=== PATIENT | female | born 1975 | race Hispanic/Latino ===

== ENCOUNTER 2018-06-24 14:31 | Emergency (ER) | payer OTHER ==
--- NOTE | 2018-06-24 15:00 | RAD REPORT ---
EXAM DESCRIPTION: RAD - Hand Right 3 View - 06/24/2018 2:54 pm CLINICAL HISTORY: Pain;Swelling COMPARISON: No comparisons FINDINGS: No acute fracture or dislocation of the right hand is seen.
--- NOTE | 2018-06-24 15:04 | ER ---
Nurse's Notes [facility] Name: Celi Nixon Age: 43 yrs Sex: Female : 1975 Arrival Date: 06/24/2018 Time: 14:32 Bed 12 Private MD: Diagnosis: Contusion of right hand Presentation: 06/24 14:38 Presenting complaint: Patient states: R hand pain after getting it smashed between an ER stretcher and the door frame. Swelling noted to R hand with mild bruising. Transition of care: patient was not received from another setting of care. Onset of symptoms was June 24, 2018. Risk Assessment: Do you want to hurt yourself or someone else? Patient reports no desire to harm self or others. Initial Sepsis Screen: Does the patient meet any 2 criteria? No. Patient's initial sepsis screen is negative. Does the patient have a suspected source of infection? No. Patient's initial sepsis screen is negative. Care prior to arrival: None. 14:38 Method Of Arrival: Ambulatory 14:38 Acuity: DICK 4 ss Historical: - Allergies: 14:44 PENICILLINS; ss - PSHx: 14:44 fibroid cyst removal; Tubal ligation; ss - Immunization history:: Adult Immunizations up to date. - Social history:: Smoking status: Patient/guardian denies using tobacco. - Ebola Screening: : Patient denies exposure to infectious person Patient denies travel to an Ebola-affected area in the 21 days before illness onset. Screenin:45 Abuse screen: Denies threats or abuse. Denies injuries from another. Nutritional ss screening: No deficits noted. Tuberculosis screening: No symptoms or risk factors identified. Never had TB. Fall Risk None identified. Assessment: 14:45 General: Appears in no apparent distress. comfortable, Behavior is calm, cooperative. ss Pain: Complains of pain in right hand Pain currently is 5 out of 10 on a pain scale. Neuro: Level of Consciousness is awake, alert, obeys commands. Cardiovascular: Capillary refill < 3 seconds is brisk in bilateral fingers. Cardiovascular: Pulses are palpable in right radial artery and left radial artery. Respiratory: Airway is patent Respiratory effort is even, unlabored, Respiratory pattern is regular, symmetrical. EENT: Nares are clear Oral mucosa is moist. Throat is clear. Derm: Skin is intact, is healthy with good turgor, Skin is pink, warm \T\ dry. normal. Musculoskeletal: Circulation, motion, and sensation intact. Range of motion: intact in all extremities, Swelling present in right hand. Vital Signs: 14:44 BP 112 / 60; Pulse 78; Resp 15; Temp 98.4(TE); Pulse Ox 100% on R/A; Pain 5/10; ss ED Course: 14:32 Patient arrived in ED. as 14:34 Dionne Agustin FNP-C is [facility]. kb 14:34 Branden Tran MD is Attending Physician. kb 14:42 Aury Gomez, JANIYA is Primary Nurse. ss 14:43 Triage completed. ss 14:44 Arm band placed on right wrist. ss 14:45 Patient has correct armband on for positive identification. Bed in low position. ss 14:49 X-ray completed. Portable x-ray completed in exam room. Patient tolerated procedure sg4 well. 14:55 Hand Right 3 View XRAY In Process Unspecified. EDMS 15:15 No provider procedures requiring assistance completed. Patient did not have IV access ph during this emergency room visit. Administered Medications: No medications were administered Outcome: 15:04 Discharge ordered by MD. kb 15:15 Discharged to home ambulatory. ph 15:15 Condition: good 15:15 Discharge instructions given to patient, Instructed on discharge instructions, follow up and referral plans. Demonstrated understanding of instructions, follow-up care. 15:15 Patient left the ED. ph Signatures: Dispatcher [employer] EDMS Dionne Agustin FNP-C FNP-Ckb Martinez, Amelia as Aury Gomez, JANIYA RN Paulette Mix RN RN Peyton Lee sg4
--- NOTE | 2018-06-24 15:05 | EDPHYS ---
Physician Documentation [facility] Name: Celi Nixon Age: 43 yrs Sex: Female : 1975 Arrival Date: 06/24/2018 Time: 14:32 Bed 12 Private MD: ED Physician Branden Tran HPI: 06/24 15:02 This 43 yrs old Female presents to ER via Ambulatory with complaints of Hand kb Injury. 15:02 The patient or guardian reports a contusion, injury, pain, swelling, tenderness. The kb complaints affect the dorsum of right hand. Context: The problem was sustained at work, resulted from hand got caught between stretcher and wall. Onset: The symptoms/episode began/occurred today. Modifying factors: The symptoms are alleviated by nothing, the symptoms are aggravated by movement. Associated signs and symptoms: The patient has no apparent associated signs or symptoms. Severity of symptoms: At their worst the symptoms were mild, moderate, in the emergency department the symptoms are unchanged. The patient has not experienced similar symptoms in the past. The patient has not recently seen a physician. Historical: - Allergies: 14:44 PENICILLINS; ss - PSHx: 14:44 fibroid cyst removal; Tubal ligation; ss - Immunization history:: Adult Immunizations up to date. - Social history:: Smoking status: Patient/guardian denies using tobacco. - Ebola Screening: : Patient denies exposure to infectious person Patient denies travel to an Ebola-affected area in the 21 days before illness onset. ROS: 15:01 Constitutional: Negative for fever, chills, and weight loss, Cardiovascular: Negative kb for chest pain, palpitations, and edema, Respiratory: Negative for shortness of breath, cough, wheezing, and pleuritic chest pain, Abdomen/GI: Negative for abdominal pain, nausea, vomiting, diarrhea, and constipation, Back: Negative for injury and pain, Neuro: Negative for headache, weakness, numbness, tingling, and seizure. 15:01 MS/extremity: Positive for contusion, of the dorsum of right hand. Exam: 15:02 Constitutional: This is a well developed, well nourished patient who is awake, alert, kb and in no acute distress. Head/Face: Normocephalic, atraumatic. Chest/axilla: Normal chest wall appearance and motion. Nontender with no deformity. No lesions are appreciated. Cardiovascular: Regular rate and rhythm with a normal S1 and S2. No gallops, murmurs, or rubs. Normal PMI, no JVD. No pulse deficits. Respiratory: Lungs have equal breath sounds bilaterally, clear to auscultation and percussion. No rales, rhonchi or wheezes noted. No increased work of breathing, no retractions or nasal flaring. Abdomen/GI: Soft, non-tender, with normal bowel sounds. No distension or tympany. No guarding or rebound. No evidence of tenderness throughout. Neuro: Awake and alert, GCS 15, oriented to person, place, time, and situation. Cranial nerves II-XII grossly intact. Motor strength 5/5 in all extremities. Sensory grossly intact. Cerebellar exam normal. Normal gait. 15:02 Musculoskeletal/extremity: Extremities: grossly normal except: noted in the dorsum of right hand: contusion, ecchymosis, pain, swelling, tenderness, ROM: intact in all extremities, Circulation is intact in all extremities. Sensation intact. Vital Signs: 14:44 BP 112 / 60; Pulse 78; Resp 15; Temp 98.4(TE); Pulse Ox 100% on R/A; Pain 5/10; ss MDM: 14:34 Patient medically screened. kb 15:01 Data reviewed: vital signs, nurses notes. Data interpreted: Pulse oximetry: on room air kb is 100 %. Interpretation: normal. Counseling: I had a detailed discussion with the patient and/or guardian regarding: the historical points, exam findings, and any diagnostic results supporting the discharge/admit diagnosis, radiology results, the need for outpatient follow up, a family practitioner, to return to the emergency department if symptoms worsen or persist or if there are any questions or concerns that arise at home. 06/24 14:35 Order name: Hand Right 3 View XRAY; Complete Time: 15:04 kb 06/24 14:35 Order name: Ice pack; Complete Time: 14:47 kb Administered Medications: No medications were administered Disposition: 06/25 07:35 Co-signature as Attending Physician, Branden Tran MD I agree with the assessment and kdr plan of care. Disposition: 06/24/18 15:04 Discharged to Home. Impression: Contusion of right hand. - Condition is Stable. - Discharge Instructions: Hand Contusion, [id number]. - Medication Reconciliation Form, Thank You Letter, Antibiotic Education, Prescription Opioid Use form. - Follow up: Emergency Department; When: As needed; Reason: Worsening of condition. Follow up: Private Physician; When: 2 - 3 days; Reason: Recheck today's complaints, Continuance of care, Re-evaluation by your physician. Signatures: Dispatcher [employer] EDLA Dionne Agustin, YASIR-C NATUROPATHIC ONCOLOGY PROVIDER-Carsonb Branden Tran MD MD [facility] Aury Gomez RN RN Paulette Mix RN RN ph Corrections: (The following items were deleted from the chart) 06/24 15:15 15:04 06/24/2018 15:04 Discharged to Home. Impression: Contusion of right hand. ph Condition is Stable. Forms are Medication Reconciliation Form, Thank You Letter, Antibiotic Education, Prescription Opioid Use. Follow up: Emergency Department; When: As needed; Reason: Worsening of condition. Follow up: Private Physician; When: 2 - 3 days; Reason: Recheck today's complaints, Continuance of care, Re-evaluation by your physician. kb
--- OUTSIDE RECORDS SUMMARY | 2018-06-26 16:11 | XMS REPORT | Clinical Summary ---
:1975 Author Organization [facility] Address [address] [place] [address] Care Team Providers Name Role Phone Taiwo Leggett MD Primary Care Provider Allergies Active Allergy Reactions Severity Noted Date Comments Penicillins Rash Low 12/25/2016 Medications Medication Sig Dispensed Refills Start Date End Date Status UNABLE TO FIND Take 88 mcg by mouth 0 Active daily. Synthroid -Brand Name Active Problems Problem Noted Date Abnormal uterine bleeding 01/09/2017 History of endometrial ablation 12/25/2016 Simple endometrial hyperplasia 12/25/2016 Immunizations Name Dates Previously Given Next Due Influenza, Unspecified 04/06/2016 Family History Medical History Relation Name Comments No Known Problems Father COPD Mother Hypertension Mother Relation Name Status Comments Father Mother Alive Social History Tobacco Use Types Packs/Day Years Used Date Never Smoker Smokeless Tobacco: Never Used Alcohol Use Drinks/Week oz/Week Comments Yes Socially Sex Assigned at Date Recorded Not on file Job Start Date Occupation Industry Not on file Not on file Not on file Travel History Travel Start Travel End No recent travel history available. Last Filed Vital Signs Not on file Plan of Treatment Health Maintenance Due Date Last Done Comments CERVICAL CANCER SCREENING 1995 INFLUENZA VACCINE 02/04/2018 04/06/2016 Results Not on fileafter 06/23/2017 Insurance Payer Benefit Plan / Group Subscriber ID Type Phone Address COMMERCIAL MISC MISC COMMERCIAL xxxxxxxxxxx Commercial Advance Directives Patient has advance care planning documents, and code status on file. For more information, please contact:[address] [address] Code Status Date Activated Date Inactivated Comments Full Code 01/09/2017 4:19 PM 01/10/2017 2:33 PM Code Status decision reached by: Patient
== END 2018-06-24 15:15 | disposition home or self-care (01) ==
LOC: ER 14:31
DX: S60.221A Contusion of right hand, initial encounter (principal); W23.0XXA Caught, crushed, jammed, or pinched between moving objects, initial encounter; Y93.89 Activity, other specified; Y92.89 Other specified places as the place of occurrence of the external cause; Y99.8 Other external cause status; Z88.0 Allergy status to penicillin
CPT/HCPCS: 99283